=== PATIENT | male | born 1980 | race Caucasian/White ===

== ENCOUNTER 2019-09-28 01:32 | Emergency (ER) | payer SELFPAY ==
[2019-09-28 01:30] VITALS: BP 124/83; PULSE 89; RESP 16; TEMP 36.5; O2SAT 95; BMI 26.6
--- NOTE | 2019-09-28 01:35 | ECG_ITS ---
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 [email or web address]
--- NOTE | 2019-09-28 01:35 | CTR_ITS ---
PROCEDURE INFORMATION: Exam: CT Head Without Contrast Exam date and time: 09/28/2019 1:37 AM Age: 39 years old Clinical indication: Injury or trauma; Initial encounter; Blunt trauma (contusions or hematomas); Consciousness not specified; Injury details: Fall, lac on head, neck pain, witnessed multiple seizures TECHNIQUE: Imaging protocol: Computed tomography of the head without contrast. Total DLP: 903.17 mGy-cm Radiation optimization: All CT scans at this facility use at least one of these dose optimization techniques: automated exposure control; mA and/or kV adjustment per patient size (includes targeted exams where dose is matched to clinical indication); or iterative reconstruction. COMPARISON: No relevant prior studies available. FINDINGS: Brain: Normal. No hemorrhage. Unremarkable white matter. No mass effect. Ventricles: Normal. No ventriculomegaly. Bones/joints: Unremarkable. No acute fracture. Sinuses: Mucosal thickening and fluid is seen within the ethmoidal sinuses. Mastoid air cells: Visualized mastoid air cells are well aerated. Soft tissues: Unremarkable. CT/CT head wo con* [id number] IMPRESSION: There are no acute intracranial findings. Radiation Dose CTDIVOL = (mGy): DLP = 903.17 (mGy-cm)
--- NOTE | 2019-09-28 01:35 | ED_ITS ---
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) and at one point was on Dilantin; he tells me he is no longer on this medication because he cannot afford it; states he has not had a seizure in 3 to 4 years; patient states he is consumed 3 32 ounce beers today; he states he drinks approximately once a week; denies drug use MD complaint: seizure Onset (ago): minute(s) Description of Episode: loss of consciousness and tonic-clonic movement Witnessed: Yes - by Bystander Trauma: Yes Seizure History: Yes Place: friend's house Associated symptoms: Deny chest pain, chills, fever(s) or syncope Treatments prior to arrival: none Review of Systems Const: Denies: fever, chills or body aches Eyes: Denies: change in vision or blurry vision Card: Denies: chest pain, palpitations, irregular heart rhythm, edema, lightheadedness, syncope or pre-syncope Resp: Denies: shortness of breath, productive cough, coughing up blood or chest congestion GI: Denies: abdominal pain, nausea or vomiting Musc: Reports: neck pain; Denies: back pain Skin/Breast: Reports: other (small facial lac) Neuro: Reports: headache; Denies: numbness in extremities, weakness in extremities, changes in sensation or lack of coordination PFSH ED PFSH: Statuses (acute, chronic, etc) shown below reflect problem list status as previously entered and may not be historically accurate Social History Smoking and tobacco status: current every day smoker Physical Exam Const: COMMON NORMALS: average body habitus, oriented x3, alert and well nourished OTHER: intoxicated however answers all questions appropriately and follows commands well HENMT: COMMON NORMALS: normocephalic, hearing grossly normal bilaterally, external ears normal, EAC's normal and TM's normal bilaterally HEAD & SCALP: normocephalic FACE & SINUS IMAGES: 1. small laceration EXTERNAL EAR: Yes external ears normal EXTERNAL AUDITORY CANAL: EAC's normal TYMPANIC MEMBRANE: TM's normal bilaterally Eye: COMMON NORMALS: PERRL and EOMs intact bilaterally PUPIL: Yes PERRL Neck/C-Spine: COMMON NORMALS: no lymphadenopathy, supple and no meningeal signs CERVICAL SPINE: Yes cervical spine tenderness (mild; mid-lower ) Chest: COMMONS NORMALS: inspection of chest normal Resp: COMMON NORMALS: normal respiratory effort and clear to auscultation bilaterally AUSCULTATION: clear to auscultation bilaterally Cardio: COMMON NORMALS: regular rate and regular rhythm RATE: regular rate RHYTHM: regular rhythm GI: COMMON NORMALS: normal to inspection, nondistended, normoactive bowel sounds, soft to palpation, non-tender, no hepatosplenomegaly and no masses PALPATION: Yes soft and Yes no hepatosplenomegaly : COMMON NORMALS: Yes no CVA tenderness BLADDER/KIDNEY EXAM: Yes no CVA tenderness Back/Pelvis: COMMON NORMALS: no CVA tenderness and thoracic and lumbar spine normal to inspection Extremity: COMMON NORMALS: normal to inspection Neuro: COMMON NORMALS: oriented x3 SENSORIUM/ORIENTATION: Yes alert MENINGEAL SIGNS: Yes no meningeal signs Skin: COMMON NORMALS: no rashes or lesions noted NARRATIVE SKIN EXAM: small lac to lateral R eyebrow GENERAL SKIN EXAM: no rashes or lesions noted Procedures Laceration Laceration 1: Site: face Side (If applicable): right Size (cm): 0.5 Description: linear Depth: simple, single layer Pre-repair: wound explored and irrigated extensively Skin layer closed with: other (skin adhesive/glue) Course ED course: pt has had at least 4 witnessed seizures while here; he has been given 2mg of ativan and still had a seizure; I have ordered 1000mg keppra for patient; he will continue to be monitored closely; care will eventually be tu rned over to Dr. Kirk at 0300/shift change with plan of probable admission Vital Signs: Vital signs: Vital Signs Temperature 97.7 F 09/28/19 01:30 Pulse Rate 96 09/28/19 05:08 Respiratory Rate 16 01/25/20 05:08 Blood Pressure 108/83 01/25/20 05:08 Pulse Oximetry 95 09/28/19 05:08 MDM - Seizure Lab Data: Labs: Lab Results 09/28/19 09/28/19 09/28/19 Range/Units 01:00 01:00 01:00 WBC 8.7 (4.0-10.0) 10^3/ uL RBC 5.18 (4.1-5.3) 10^6/u L Hgb 16.5 (11.7-16.6) g/dL Hct 48.1 (42.0-52.0) % MCV 92.9 (80-94) fL MCH 31.9 (28.0-34.0) pg MCHC 34.3 (30.0-36.0) g/dL RDW 13.0 (12.1-15.1) % Plt Count 207 (130-400) 10^3/c mm MPV 11.3 H (7.4-10.4) fL Neut % (Auto) 58.4 % Lymph % (Auto) 33.0 % [place] % (Auto) 5.8 % Eos % (Auto) 2.4 % Baso % (Auto) 0.3 % Neut # (Auto) 5.1 (1.8-7.7) 10^3/u L Lymph # (Auto) 2.9 (0.8-4.8) 10^3/u L [place] # (Auto) 0.5 (0.2-0.9) 10^3/u L Eos # (Auto) 0.2 (0.0-0.8) 10^3/u L Baso # (Auto) 0.0 (0.0-0.1) 10^3/u L Nucleated RBC % (a uto) 0 % Nucleated RBCs # 0.0 /100WBC Sodium 141 (136-145) mmol/L Potassium 3.6 (3.5-5.1) mmol/L Chloride 100 (98-107) mmol/L Carbon Dioxide 21 L (22-29) mmol/L Anion Gap 23.6 H (5-19) BUN 3 L (6-20) mg/dL Creatinine 0.8 (0.7-1.2) mg/dL GFR Calculation 108.2 (90-130) mL/min Glucose 112 H (74-109) mg/dL Calcium 10.2 (8.5-10.5) mg/dL Magnesium 2.4 H (1.7-2.3) mg/dL Total Bilirubin 0.4 (0.15-1.2) mg/dL AST 17 (0-40) U/L ALT 20 (0-41) U/L Alkaline Phosphata se 105 (40-130) IU/L Total Protein 7.8 (6.6-8.7) g/dL Albumin 4.9 (3.5-5.2) g/dL Globulin 2.9 (1.3-4.6) g/dL Salicylates < 0.3 L (3-10) mg/dL Urine Opiates Scre en (Negative) ng/mL Acetaminophen < 5.0 L (10-30) ug/mL Ur Barbiturates Sc reen (Negative) ng/mL Phenytoin 0.8 L (10-20) ug/mL Ur Phencyclidine S crn (Negative) ng/mL Ur Amphetamines Sc reen (Negative) ng/mL U Benzodiazepines Scrn (Negative) ng/mL Urine Cocaine Scre en (Negative) ng/mL U Marijuana (THC) Screen (Negative) ng/mL Ethyl Alcohol 187 H (0-10) mg/dL 09/28/ Range/Units 01:47 WBC (4.0-10.0) 10^3/ uL RBC (4.1-5.3) 10^6/u L Hgb (11.7-16.6) g/dL Hct (42.0-52.0) % MCV (80-94) fL MCH (28.0-34.0) pg MCHC (30.0-36.0) g/dL RDW (12.1-15.1) % Plt Count (130-400) 10^3/c mm MPV (7.4-10.4) fL Neut % (Auto) % Lymph % (Auto) % [place] % (Auto) % Eos % (Auto) % Baso % (Auto) % Neut # (Auto) (1.8-7.7) 10^3/u L Lymph # (Auto) (0.8-4.8) 10^3/u L [place] # (Auto) (0.2-0.9) 10^3/u L Eos # (Auto) (0.0-0.8) 10^3/u L Baso # (Auto) (0.0-0.1) 10^3/u L Nucleated RBC % (a uto) % Nucleated RBCs # /100WBC Sodium (136-145) mmol/L Potassium (3.5-5.1) mmol/L Chloride (98-107) mmol/L Carbon Dioxide (22-29) mmol/L Anion Gap (5-19) BUN (6-20) mg/dL Creatinine (0.7-1.2) mg/dL GFR Calculation (90-130) mL/min Glucose (74-109) mg/dL Calcium (8.5-10.5) mg/dL Magnesium (1.7-2.3) mg/dL Total Bilirubin (0.15-1.2) mg/dL AST (0-40) U/L ALT (0-41) U/L Alkaline Phosphata se (40-130) IU/L Total Protein (6.6-8.7) g/dL Albumin (3.5-5.2) g/dL Globulin (1.3-4.6) g/dL Salicylates (3-10) mg/dL Urine Opiates Scre en Negative (Negative) ng/mL Acetaminophen (10-30) ug/mL Ur Barbiturates Sc reen Negative (Negative) ng/mL Phenytoin (10-20) ug/mL Ur Phencyclidine S crn Negative (Negative) ng/mL Ur Amphetamines Sc reen Negative (Negative) ng/mL U Benzodiazepines Scrn Negative (Negative) ng/mL Urine Cocaine Scre en Negative (Negative) ng/mL U Marijuana (THC) Screen Negative (Negative) ng/mL Ethyl Alcohol (0-10) mg/dL EKG Data^: EKG 1: EKG interpretation date: 09/28/19 EKG interpretation time: 01:50 Interpretation: Sinus rhythm Rate 81 Moderate intraventricular conduction delay (110+ MS QRS duration) No ST elevation or depression noted Discharge Plan Discharge Patient Disposition: Home, Self-Care Clinical Impression: Epileptic seizure Qualifiers: Epilepsy type: generalized idiopathic Intractability: not intractable Status epilepticus: without status epilepticus Qualified Code(s): G40.309 - Generalized idiopathic epilepsy and epileptic syndromes, not intractable, without status epilepticus Alcohol intoxication Qualifiers: Complication of substance-induced condition: with unspecified complication Qualified Code(s): F10.929 - Alcohol use, unspecified with intoxication, unspecified Condition: Stable Prescriptions: New Keppra 500 mg tablet 500 mg PO Q12H Qty: 60 RF: 0 Discharge Orders: Discharge Order (Routine); Ordered 09/28/19 Ordered By: Stan Kirk Referrals: Jud Balderas MD [Physician] - 4-7 days Norman Gibbs FNP [Family Provider] - Discharge Diet: Advance as tolerated Discharge Activity: Limit activity as instructed Patient Instructions: Alcohol Intoxication (ED), Recurrent Seizures Adult (ED) Activity Restrictions/Additional Instructions: You may not drive until cleared by your neurologist. You should avoid alcohol, as it can predispose you to seizure. Medications as directed. Return for repeated episodes of seizure, mental status changes, fever, other concerning symptoms. Discharge Date/Time: 09/28/19 05:09 Coding Level of Care Code ED Senior Vice President And Chief Information Officer for [employer] Documented by User: Stan Kirk DO 09/28/19 07:11 HPI - Seizure General: Chief Complaint: Seizure Stated Complaint: Seizure/ ETOH Time Seen by Provider: 09/28/19 01:34 PFSH ED PFSH: Statuses (acute, chronic, etc) shown below reflect problem list status as previously entered and may not be historically accurate Social History Smoking and tobacco status: current every day smoker Physical Exam HENMT: FACE & SINUS IMAGES: 1. small laceration Course ED course: 39-year-old male originally seen by Mrs. Patrick PA-C. I agree with her history, evaluation, and work-up. This patient was intoxicated, has a history of seizures, and had several in the emergency department. However, after being loaded with Keppra, he has had no more seizures. He spent 2-1/2 hours up walking talking and is back to baseline. He is alert to person place time and situation. He wished to leave, and follow-up as an outpatient. He will be covered with Keppra, as he has not had antiepileptic medicine in quite some time. Vital Signs: Vital signs: Vital Signs Temperature 97.7 F 09/28/19 01:30 Pulse Rate 96 09/28/19 05:08 Respiratory Rate 16 09/28/19 05:08 Blood Pressure 108/83 09/28/19 05:08 Pulse Oximetry 95 09/28/19 05:08 MDM - Seizure Lab Data: Labs: Lab Results 09/28/19 09/28/19 09/28/19 Range/Units 01:00 01:00 01:00 WBC 8.7 (4.0-10.0) 10^3/ uL RBC 5.18 (4.1-5.3) 10^6/u L Hgb 16.5 (11.7-16.6) g/dL Hct 48.1 (42.0-52.0) % MCV 92.9 (80-94) fL MCH 31.9 (28.0-34.0) pg MCHC 34.3 (30.0-36.0) g/dL RDW 13.0 (12.1-15.1) % Plt Count 207 (130-400) 10^3/c mm MPV 11.3 H (7.4-10.4) fL Neut % (Auto) 58.4 % Lymph % (Auto) 33.0 % [place] % (Auto) 5.8 % Eos % (Auto) 2.4 % Baso % (Auto) 0.3 % Neut # (Auto) 5.1 (1.8-7.7) 10^3/u L Lymph # (Auto) 2.9 (0.8-4.8) 10^3/u L [place] # (Auto) 0.5 (0.2-0.9) 10^3/u L Eos # (Auto) 0.2 (0.0-0.8) 10^3/u L Baso # (Auto) 0.0 (0.0-0.1) 10^3/u L Nucleated RBC % (a uto) 0 % Nucleated RBCs # 0.0 /100WBC Sodium 141 (136-145) mmol/L Potassium 3.6 (3.5-5.1) mmol/L Chloride 100 (98-107) mmol/L Carbon Dioxide 21 L (22-29) mmol/L Anion Gap 23.6 H (5-19) BUN 3 L (6-20) mg/dL Creatinine 0.8 (0.7-1.2) mg/dL GFR Calculation 108.2 (90-130) mL/min Glucose 112 H (74-109) mg/dL Calcium 10.2 (8.5-10.5) mg/dL Magnesium 2.4 H (1.7-2.3) mg/dL Total Bilirubin 0.4 (0.15-1.2) mg/dL AST 17 (0-40) U/L ALT 20 (0-41) U/L Alkaline Phosphata se 105 (40-130) IU/L Total Protein 7.8 (6.6-8.7) g/dL Albumin 4.9 (3.5-5.2) g/dL Globulin 2.9 (1.3-4.6) g/dL Salicylates < 0.3 L (3-10) mg/dL Urine Opiates Scre en (Negative) ng/mL Acetaminophen < 5.0 L (10-30) ug/mL Ur Barbiturates Sc reen (Negative) ng/mL Phenytoin 0.8 L (10-20) ug/mL Ur Phencyclidine S crn (Negative) ng/mL Ur Amphetamines Sc reen (Negative) ng/mL U Benzodiazepines Scrn (Negative) ng/mL Urine Cocaine Scre en (Negative) ng/mL U Marijuana (THC) Screen (Negative) ng/mL Ethyl Alcohol 187 H (0-10) mg/dL 09/28/20 Range/Units 01:47 WBC (4.0-10.0) 10^3/ uL RBC (4.1-5.3) 10^6/u L Hgb (11.7-16.6) g/dL Hct (42.0-52.0) % MCV (80-94) fL MCH (28.0-34.0) pg MCHC (30.0-36.0) g/dL RDW (12.1-15.1) % Plt Count (130-400) 10^3/c mm MPV (7.4-10.4) fL Neut % (Auto) % Lymph % (Auto) % [place] % (Auto) % Eos % (Auto) % Baso % (Auto) % Neut # (Auto) (1.8-7.7) 10^3/u L Lymph # (Auto) (0.8-4.8) 10^3/u L [place] # (Auto) (0.2-0.9) 10^3/u L Eos # (Auto) (0.0-0.8) 10^3/u L Baso # (Auto) (0.0-0.1) 10^3/u L Nucleated RBC % (a uto) % Nucleated RBCs # /100WBC Sodium (136-145) mmol/L Potassium (3.5-5.1) mmol/L Chloride (98-107) mmol/L Carbon Dioxide (22-29) mmol/L Anion Gap (5-19) BUN (6-20) mg/dL Creatinine (0.7-1.2) mg/dL GFR Calculation (90-130) mL/min Glucose (74-109) mg/dL Calcium (8.5-10.5) mg/dL Magnesium (1.7-2.3) mg/dL Total Bilirubin (0.15-1.2) mg/dL AST (0-40) U/L ALT (0-41) U/L Alkaline Phosphata se (40-130) IU/L Total Protein (6.6-8.7) g/dL Albumin (3.5-5.2) g/dL Globulin (1.3-4.6) g/dL Salicylates (3-10) mg/dL Urine Opiates Scre en Negative (Negative) ng/mL Acetaminophen (10-30) ug/mL Ur Barbiturates Sc reen Negative (Negative) ng/mL Phenytoin (10-20) ug/mL Ur Phencyclidine S crn Negative (Negative) ng/mL Ur Amphetamines Sc reen Negative (Negative) ng/mL U Benzodiazepines Scrn Negative (Negative) ng/mL Urine Cocaine Scre en Negative (Negative) ng/mL U Marijuana (THC) Screen Negative (Negative) ng/mL Ethyl Alcohol (0-10) mg/dL Discharge Plan Discharge Patient Disposition: Home, Self-Care Clinical Impression: Epileptic seizure Qualifiers: Epilepsy type: generalized idiopathic Intractability: not intractable Status epilepticus: without status epilepticus Qualified Code(s): G40.309 - Generalized idiopathic epilepsy and epileptic syndromes, not intractable, without status epilepticus Alcohol intoxication Qualifiers: Complication of substance-induced condition: with unspecified complication Qualified Code(s): F10.929 - Alcohol use, unspecified with intoxication, unspecified Condition: Stable Prescriptions: New Keppra 500 mg tablet 500 mg PO Q12H Qty: 60 RF: 0 Discharge Orders: Discharge Order (Routine); Ordered 09/28/19 Ordered By: Stan Kirk Referrals: Jud Balderas MD [Physician] - 4-7 days Norman Gibbs FNP [Family Provider] - Discharge Diet: Advance as tolerated Discharge Activity: Limit activity as instructed Patient Instructions: Alcohol Intoxication (ED), Recurrent Seizures Adult (ED) Activity Restrictions/Additional Instructions: You may not drive until cleared by your neurologist. You should avoid alcohol, as it can predispose you to seizure. Medications as directed. Return for repeated episodes of seizure, mental status changes, fever, other concerning symptoms. Discharge Date/Time: 09/28/19 05:09 Coding Level of Care Code ED Senior Vice President And Chief Information Officer for Eveline Garduno
--- NOTE | 2019-09-28 01:35 | CTR_ITS ---
PROCEDURE INFORMATION: Exam: CT Cervical Spine Without Contrast Exam date and time: 09/28/2019 1:37 AM Age: 39 years old Clinical indication: Injury or trauma; Initial encounter; Blunt trauma; Injury details: Fall, lac on head, neck pain, witnessed multiple seizures; Additional info: Fall/neck pain TECHNIQUE: Imaging protocol: Computed tomography images of the cervical spine without contrast. Total DLP: 818.12 mGy-cm Radiation optimization: All CT scans at this facility use at least one of these dose optimization techniques: automated exposure control; mA and/or kV adjustment per patient size (includes targeted exams where dose is matched to clinical indication); or iterative reconstruction. COMPARISON: No relevant prior studies available. FINDINGS: Vertebrae: No acute fracture. Normal alignment. Discs/Spinal canal/Neural foramina: No spinal stenosis. No neural foraminal narrowing. Soft tissues: Unremarkable. Sinuses: Mucosal thickening it is seen within the ethmoidal sinuses bilaterally. Lungs: Lung apices are normal. CT/CT cervical spin wo con* [id number] IMPRESSION: There are no acute osseous findings. Radiation Dose CTDIVOL = (mGy): DLP = 818.12 (mGy-cm)
[2019-09-28] MEDS: sodium chloride 0.9% 1,000 ML 999 ML IV (01:47)
--- NOTE | 2019-09-28 01:50 | PC.NURSE ---
Noticed that the patient tensed up, left arm shaking/spazing, gritted his teeth, and had his eyes rolled back into his head. informed the nurse and Amy DUNCAN of what i saw.
[2019-09-28 01:54] LABS: Basophils % 0.3 %; Eosinophils # 0.2 10^3/uL (0.0-0.8); Eosinophils % 2.4 %; Hematocrit 48.1 % (42.0-52.0); Hemoglobin 16.5 g/dL (11.7-16.6); Lymphocytes # 2.9 10^3/uL (0.8-4.8); Mean Corpuscular HGB Conc 34.3 g/dL (30.0-36.0); Mean Corpuscular Hemoglobin 31.9 pg (28.0-34.0); Mean Corpuscular Volume 92.9 fL (80-94); Mean Platelet Volume 11.3 fL (7.4-10.4); Monocytes # 0.5 10^3/uL (0.2-0.9); Monocytes % 5.8 %; Neutrophils # 5.1 10^3/uL (1.8-7.7); Neutrophils % 58.4 %; Nucleated Red Blood Cells % 0 %; Platelet Count 207 10^3/cmm (130-400); Red Blood Count 5.18 10^6/uL (4.1-5.3); White Blood Count 8.7 10^3/uL (4.0-10.0)
[2019-09-28 02:00] LABS: Amphetamines Screen Urine Negative (Negative); Barbiturates Screen Urine Negative (Negative); Benzodiazepines Screen Urine Negative (Negative); Cocaine Screen Urine Negative (Negative); Opiate Screen Urine Negative (Negative); PCP Screen Urine Negative (Negative); THC Screen Urine Negative (Negative)
[2019-09-28] MEDS: LORazepam 2 mg/mL INJ 1 mL 1 MG IVP ×2 (02:05→02:10)
[2019-09-28 02:31] LABS: Alanine Aminotransferase 20 U/L (0-41); Albumin Level 4.9 g/dL (3.5-5.2); Alcohol Level 187 mg/dL (0-10); Alkaline Phosphatase 105 IU/L (40-130); Anion Gap 23.6 (5-19); Aspartate Amino Transferase 17 U/L (0-40); Blood Urea Nitrogen 3 mg/dL (6-20); Calcium 10.2 mg/dL (8.5-10.5); Carbon Dioxide 21 mmol/L (22-29); Chloride 100 mmol/L (98-107); Globulin 2.9 g/dL (1.3-4.6); Glomerular Filtration Rate 108.2 mL/min (90-130); Glucose 112 mg/dL (74-109); Magnesium 2.4 mg/dL (1.7-2.3); Potassium 3.6 mmol/L (3.5-5.1); Sodium 141 mmol/L (136-145); Total Bilirubin 0.4 mg/dL (0.15-1.2); Total Protein 7.8 g/dL (6.6-8.7)
[2019-09-28 02:32] LABS: Acetaminophen < 5.0 ug/mL (10-30); Salicylate < 0.3 mg/dL (3-10)
--- NOTE | 2019-09-28 02:52 | PC.NURSE ---
Patient has had multiple seizures since being in ER, DAKOTA Oreilly advised, verbal orders for ativan 1 mg IVP received, seizure precautions maintained
[2019-09-28] MEDS: midazolam 1 mg/mL INJ 2 mL 2 MG IVP (03:02)
[2019-09-28 03:56] VITALS: BP 93/78; PULSE 96; RESP 16; O2SAT 96
--- NOTE | 2019-09-28 04:32 | PC.NURSE ---
patient requesting coffee, okayed per Dr. Kirk
--- NOTE | 2019-09-28 04:32 | PC.NURSE ---
Patient alert and oriented x4, able to ambulate without assistance, patient states he feels better at this time
[2019-09-28 05:08] VITALS: BP 108/83; PULSE 96; RESP 16; O2SAT 95
[2019-09-28 06:05] LABS: Phenytoin Dilantin 0.8 ug/mL (10-20)
--- NOTE | 2019-09-30 15:23 | DCPLANNER ---
instructional design manager had message to schedule a follow up appointment for patient with Dr. Balderas. instructional design manager called the office of Dr. Balderas, spoke with Rody, a follow up appointment was scheduled for Monday, November 11, 2019 at 10:[address] Balderas. instructional design manager called patient to inform patient of the scheduled appointment. instructional design manager was unable to speak with patient at this time, a voicemail was left for patient to return showcase maker phone call. instructional design manager mailed patient a letter with the appointment information.
--- NOTE | 2019-11-13 14:20 | DCPLANNER ---
Patient did not attend appointment scheduled for 11.11.[address] Balderas.
== END 2019-09-28 05:09 | disposition home or self-care (01) ==
PROVIDERS: Emergency Medicine; Emergency Provider Physician Assistant; Family Provider Nurse Practitioner Family
DX: G40.309 Generalized idiopathic epilepsy and epileptic syndromes, not intractable, without status epilepticus (principal); F10.129 Alcohol abuse with intoxication, unspecified; Y90.9 Presence of alcohol in blood, level not specified; F17.210 Nicotine dependence, cigarettes, uncomplicated; S01.111A Laceration without foreign body of right eyelid and periocular area, initial encounter; X58.XXXA Exposure to other specified factors, initial encounter
CPT/HCPCS: 70450; 72125; 80053; 80185; 80307; 83735; 85025; 93005; 96360; 96365; 96374; 99283; J1953; J2060; J2250; J7030